=== PATIENT | female | born 1995 | race Caucasian/White ===

== ENCOUNTER 2017-01-26 18:13 | Inpatient (IN) | payer BC, OTHER ==
[~2017-01-26] VITALS: Ht 160 cm; Wt 87.9 kg
[~2017-01-26 18:13] MED LIST: ACET160S3 PO; ACET50TA PO; IBUP-1114 PO; PRENTAB40 PO; STUACAP PO; TUMS500C PO
[2017-01-26 19:23] LABS: MEAN CORPUSCULAR HEMOGLOBIN 27.8 pg (27.0-33.0); MEAN CORPUSCULAR HGB CONC 33.8 g/dl (32.0-36.5); MEAN CORPUSCULAR VOLUME 82.1 fl (80.0-96.0); RED CELL DISTRIBUTION WIDTH 13.9 % (11.5-14.5)
[2017-01-26 19:27] LABS: CONTROL LINE HCG INT CTR LINE PRESENT
[2017-01-26 19:41] LABS: ALBUMIN 4.3 GM/DL (3.2-5.2); ALBUMIN/GLOBULIN RATIO 1.23 (1.00-1.93); ALKALINE PHOSPHATASE 77 U/L (45-117); ALT/SGPT 30 U/L (12-78); ANION GAP 6 MEQ/L (8-16); AST/SGOT 17 U/L (15-37); BILIRUBIN,DIRECT < 0.1 MG/DL (0.0-0.2); BILIRUBIN,TOTAL 0.4 MG/DL (0.2-1.0); BLOOD UREA NITROGEN 9 MG/DL (7-18); CALCIUM LEVEL 9.5 MG/DL (8.5-10.1); CARBON DIOXIDE LEVEL 29 MEQ/L (21-32); CHLORIDE LEVEL 104 MEQ/L (98-107); CREATININE FOR GFR 0.63 MG/DL (0.55-1.02); GLOMERULAR FILTRATION RATE > 60.0 (>60); GLUCOSE, FASTING 94 MG/DL (70-105); POTASSIUM SERUM 4.4 MEQ/L (3.5-5.1); SODIUM LEVEL 139 MEQ/L (136-145); TOTAL PROTEIN 7.8 GM/DL (6.4-8.2)
[2017-01-26] MEDS ORDERED: VITACHTA PO (20:58)
[2017-01-26 20:59] LABS: METHADONE URINE NEGATIVE (NEGATIVE)
[2017-01-27 00:47] VITALS: BP 142/80
[2017-01-27] MEDS ORDERED: MOM 30ML SUSPENSION UDC PO PRN (02:15)
[2017-01-27] MEDS ORDERED: MAALOX 30 ML SUSP *UDC PO PRN (02:15)
[2017-01-27] MEDS: MULTIVITAMINS/MINERALS THERAP 1 TAB PO SCH (09:15)
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
[2017-01-27] MEDS: FLUoxetine 20 MG CAP PO SCH (09:58)
--- NOTE | 2017-01-27 11:09 | HPEPDOC ---
Medical History and Physical Date of Admission Jan 26, 2017 at 21:43 History and Physical PCP: None ATTENDING: Dr. Trung Douglas HPI: 21 yo M admitted to [facility] for unspecified depressive disorder, being medically examined today. No acute medical complaints today. Denies any fevers, chills, weakness, fatigue, [place], CP, SOB, cough, palpitations, abdominal pain, N/V /D or changes in bowel or bladder habits. PMHx: Depression History of SI PSHX: Appendectomy 2000 History of umbilical hernia repair 2016 History of femur fracture SOCHX: Resides in: [facility] Marital Status: Kids: 1-year-old daughter Employment: Unemployed Tobacco use: Denies ETOH: 6 per week Illicit Drugs: Denies IV Drug Use: Denies Tattoos done unprofessionally: Denies FAMHX: Mother: Alive, well Father: Alive, hypertension, diabetes Siblings: One brother Alive, well Children: Alive, well Unexpected deaths due to medical reasons: None. ROS: As noted in HPI, otherwise 11pt ROS of systems reviewed and remarkable only for LMP 12/14/16. PE: GEN: 21yoF, appears stated age. Well-nourished, well developed. No acute distress. Alert and oriented x 3. Pleasant, interactive. HEENT: Normocephalic, atraumatic. Pupils are equal, round, and reactive to light. Extraocular movements are intact. No nystagmus appreciated. Sclera are nonicteric. Conjunctiva without injection. Nose midline. Nasal turbinates without bogginess. EACs both patent BL. TMs both visualized and arce with good cone of light, no bulging or erythema. No facial asymmetry. Moist mucous membranes. Dentition fair. Pharynx pink and moist, no cobblestoning. Neck supple , trachea midline. No lymphadenopathy or thyromegaly appreciated. CHEST: Regular rate and rhythm, +S1, +S2 LUNGS: Clear to auscultation bilaterally. No wheezes, rales, or rhonchi. Breathing appears symmetric and easy. Patient is speaking in full sentences. No accessory muscle use. ABD: Round, soft, non-tender, non-distended. +Bowel sounds throughout. No rebound or guarding. No costovertebral angle tenderness. EXT: Pulses 2+ bilaterally dorsalis pedis and radial. No lower extremity edema appreciated. SKIN: Avinger, dry, warm. Capillary refill <2sec. No rashes. NEURO: Alert and oriented x 3. Cranial nerves III-XII are intact. No focal deficits appreciated. EKG: Pending. A&P: 21 yo M admitted to [facility] for unspecified depressive disorder 1. Psych. Plan per Psychiatry. Obtain baseline EKG to assure the safety of psychiatric medications as they can prolong the QT interval. 2. Follow up with PCP on discharge. 3. Ruth PEREZ present throughout examination Vital Signs Vital Signs Label Value Date Time Patient Temperature 98.8 degrees F 01/27/1746 Temperature Source Skin 01/27/1746 Pulse 94 01/27/1746 Respiratory Rate 20 bpm 01/27/1746 Blood Pressure Assessment 142/80 (100) 01/27/1746 Bedside Pulse Oximetry 98 % 01/27/17 0010 Item Value Date Time Oxygen Delivery Method Room Air 01/27/1746 Laboratory Data Labs 24H Laboratory Tests 2 01/26/17 18:54: Acetaminophen Level < 2.0L, Aspartate Amino Transf (AST/SGOT) 17, Alanine Aminotransferase (ALT/SGPT) 30, Alkaline Phosphatase 77, Total Bilirubin 0.4, Direct Bilirubin < 0.1, Albumin 4.3, Albumin/Globulin Ratio 1.23, Anion Gap 6L, Calcium Level 9.5, Ethyl Alcohol Level 0.004, Glomerular Filtration Rate > 60.0 , Human Chorionic Gonadotropin, Qual NEGATIVE, Salicylates Level 2.5L, Thyroid Stimulating Hormone (TSH) 1.990, Total Protein 7.8 01/26/17 18:55: Urine Amphetamines Screen NEGATIVE, Urine Benzodiazepines Screen NEGATIVE, Urine Opiates Screen NEGATIVE, Urine Barbiturates Screen NEGATIVE, Urine Cannabinoids Screen NEGATIVE, Urine Cocaine Metabolite Screen NEGATIVE, Urine Methadone Screen NEGATIVE, Urine Phencyclidine Screen NEGATIVE CBC/BMP Laboratory Tests 01/26/17 18:54 Red Blood Count 5.01, Mean Corpuscular Volume 82.1, Mean Corpuscular Hemoglobin 27.8, Mean Corpuscular Hemoglobin Concent 33.8, Red Cell Distribution Width 13.9 Home Medications Scheduled Multivitamins Chewable *[facility] STOCKED* (Animal Shapes with C & FA *[facility] STOCKED*) 1 Tab Chew 2 TAB PO DAILY Allergies Coded Allergies: No Known Allergies (Unverified , 02/14/16) Shanique Billy Jan 27, 2017 11:09
[2017-01-27 12:00] VITALS: BP 134/79
[2017-01-27 18:00] VITALS: BP 135/73
[2017-01-27 22:17] VITALS: BP 128/70
[2017-01-27] MEDS: traZODone 50 MG TAB PO PRN (22:17)
--- NOTE | 2017-01-27 22:26 | ECGEPIP ---
Stationary ECG Study [facility] Test Date: 2017-01-27 Pat Name: PILAR CRUZ Department: Room: [place] [address] Gender: F Host And Hostess: MANASA : 1995 Requested By: Shanique Billy Order Number: [id number] Reading MD: Bernard Cueva Measurements Intervals [place] Rate: 83 P: 55 UT: 132 QRS: 52 QRSD: 84 T: 46 QT: 343 QTc: 405 Interpretive Statements Normal sinus rhythm Nonspecific ST-T wave abnormalities Comparison tracing not on file Electronically Signed On 01-27-2017 22:25:32 EDT by Bernard Cueva
[2017-01-28 06:00] VITALS: BP 113/73
[2017-01-28] MEDS: FLUoxetine 20 MG CAP PO SCH (08:24)
[2017-01-28] MEDS: MULTIVITAMINS/MINERALS THERAP 1 TAB PO SCH (08:24)
[2017-01-28] MEDS: ACETAMINOPHEN TAB 650MG DOSE (2X325MG) PO PRN (16:22)
--- NOTE | 2017-01-28 17:54 | IPN ---
DATE: 01/28/2017 TREATMENT: This is a 21-year-old woman in day # two of inpatient hospitalization. She presented with suicidal ideation, reportedly due to her serving her with divorce papers. The patient is diagnosed with major depressive disorder and is currently being prescribed fluoxetine 20 mg orally daily. She reports that she has had marital problems with her for about a year. Her is an active-duty soldier at [employer]. Upon his returning recently from a deployment in [place], in August 2016, the conflicts intensified, resulting in his serving her with divorce papers. Of note, however, her has visited since her current admission, which leads to questioning the nature currently of the relationship. She reports that she still experiences depressive symptoms, frustration, and a strong feeling of betrayal. No reported medication side effects. OBSERVATION: She presents as well groomed and appropriately dressed in [facility]. Her speech is of normal volume, rate and rhythm. Thought process is coherent and goal directed. No evidence of delusions or hallucinations. Her mood is depressed. She denies active thoughts, plan or intent of suicide or homicide. ASSESSMENT: The patient is tolerating medication; however, she remains symptomatic and requires further inpatient stabilization. PLAN: The current treatment will be continued with ongoing reviews and supportive therapy. Further medication adjustment may be required. SMILEY
[2017-01-28 18:00] VITALS: BP 127/70
[2017-01-28 20:00] VITALS: BP 126/74
[2017-01-28 21:29] VITALS: BP 133/74
[2017-01-28] MEDS: traZODone 50 MG TAB PO PRN (22:16)
[2017-01-29 06:38] VITALS: BP 118/66
[2017-01-29] MEDS: MULTIVITAMINS/MINERALS THERAP 1 TAB PO SCH (08:13)
[2017-01-29] MEDS: FLUoxetine 20 MG CAP PO SCH (08:13)
[2017-01-29 18:00] VITALS: BP 133/68
--- NOTE | 2017-01-29 20:53 | IPN ---
DATE: 01/29/2017 TREATMENT: This is day number three of inpatient hospitalization for this 21-year-old woman admitted due to suicidal ideation. She currently is on fluoxetine 20 mg orally daily and is also provided with therapeutic programming, including group and activities. She reports being compliant with her treatments and no side effects noted. She says today that, "I feel better, I am doing better." When asked about her mood; however, she says, "I feel neutral." Subsequently, she clarifies that she feels a little depressed; however, she states that she no longer is having thoughts of suicide. Her visited the previous day and both, she says, had a cordial discussion. OBSERVATION: She presents as appropriately dressed and groomed. No thought disorder evident. Her mood has shown some improvement, although slightly depressed. No psychotic features are evident. She continues to deny active thoughts, plan or intent of suicide or homicide. ASSESSMENT: She continues to adjust relatively well to current setting, showing some improvement, although not optimal; however, she does not appear to be a danger to self or others at this time. Further inpatient hospitalization is required for stabilization. PLAN: She will be continued on Prozac 20 mg with ongoing supportive therapy. MTDD
[2017-01-29] MEDS: traZODone 50 MG TAB PO PRN (22:34)
[2017-01-30 06:50] VITALS: BP 124/60
[2017-01-30] MEDS: FLUoxetine 20 MG CAP PO SCH (08:28)
[2017-01-30] MEDS: MULTIVITAMINS/MINERALS THERAP 1 TAB PO SCH (08:28)
--- NOTE | 2017-01-30 13:03 | IPN ---
DATE: 01/30/2017 Mitch Geiger was seen throughout the weekend by Dr. Cardenas. She states to me that she was doing well but her came throughout the weekend and was "great" until last night. He stated that he could not be with her. The patient had brought the subject up. This made her again depressed and suicidal in thought. She states that he brought puzzles and throughout the puzzles he had written love notes. He said that he loved her and kissed her. However, he then stated that he plans for the patient to move to [place] and then he would admit himself to the mental health unit. She states that he is "holding it together for our daughter." She states that he wants "marriage things without being ." We discussed his mixed messages and that the patient needs to look that her moods and suicidal ideation are depending on his changing mind. It should be noted that the patient has had a history of past overdoses in 2013 and 2014 that went untreated. I have presented raised her Prozac to 30 mg. DIAGNOSES: 1. Major depressive illness. 2. Marital stressors. MENTAL STATUS EXAMINATION: Speech is normal rate and rhythm. No disturbances of thought process. No loose associations. No abnormal psychotic thoughts. Judgment poor. Insight poor. Orientation in three spheres is present. No difficulties in recent and remote memory. Attention and concentration are normal. No disturbances of language. She has a full fund of knowledge. Her mood is low. Her affect is flat.
[2017-01-30 18:00] VITALS: BP 138/75
[2017-01-30] MEDS: traZODone 50 MG TAB PO PRN (22:23)
[2017-01-31 06:09] VITALS: BP 138/69
[2017-01-31] MEDS: FLUoxetine 10 MG CAP PO SCH (08:24)
[2017-01-31] MEDS: MULTIVITAMINS/MINERALS THERAP 1 TAB PO SCH (08:24)
--- NOTE | 2017-01-31 14:40 | IPN ---
DATE: 01/31/2017 I discussed her past overdoses with her. She states, "I hated my unit and they were awful to me." She states, "I felt alone and nobody was there to help me." She took Percocet and Ambien for those overdoses. She states, "I rolled the dice." Her third overdose was 1-1/2 months ago. She states that this last one was due to home stress. She states that she has been in the same fight with her for at least 6 months or more. She states that they talk of divorce. This also occurred on Monday when her mood slipped again. She states him serving her papers was more terrible and caused this admission. She states, "I realize it is me and I have never had any help with it. We discussed if she moved to [place] what would occur and she stated, "that her parents were also very intrusive in her life." MENTAL STATUS EXAMINATION: Speech is normal rate and articulation. No disturbance of thought process. No loose associations. No abnormal or psychotic thoughts. Judgment and insight poor. Orientation in three spheres present. Recent and remote memory intact. Attention and concentration intact. No disturbances of language. Full fund of knowledge. Mood is low and affect is flat. IMPRESSION: 1. Major depressive illness. 2. Marital stress. The patient will continue on fluoxetine, which I have increased to 30 mg and outpatient planning in a safe environment that will not initiate a repeat suicide attempt, as will be discussed in treatment planning.
[2017-01-31 18:00] VITALS: BP 129/65
[2017-01-31] MEDS: traZODone 50 MG TAB PO PRN (22:38)
[2017-02-01 06:12] VITALS: BP 135/69
[2017-02-01] MEDS: MULTIVITAMINS/MINERALS THERAP 1 TAB PO SCH (08:02)
[2017-02-01] MEDS: FLUoxetine 10 MG CAP PO SCH (08:03)
--- NOTE | 2017-02-01 13:47 | IPN ---
DATE: 02/01/2017 I met with Mitch Geiger and staff today. She states her had issues of deployment and he became suicidal. She reported it and he has held that against her. She probably states that she will go back to her apartment. [facility] has a long waiting list to see a physician. She described to us how last night he was mad at her for sitting with other people in the lounge and has in the past been angry at her for having a male doctor. She states, "I have to change". She states it is possible he could go to [place], but it is not definite. Besides from treating her depression medically, the main issue is for her to return to a safe environment as she does not seem to have the strength when he argues with her to avoid self harm. Present medications include fluoxetine which has been raised to 30 mg in the morning, trazodone for sleep 100 mg as needed. Her CBC is within normal range. No disturbances of chemistry in her general serum chemistries. Toxicology screen is negative. MENTAL STATUS: Her speech is within normal range and normal rhythm. No disturbances of thought process. No loose associations. Abnormal psychotic thoughts are not present. Judgment and insight continue fair. Orientation in three spheres is present. Recent and remote memory are intact. No disturbances of attention or concentration. No disturbances of language. Full fund of knowledge. Mood is fair. Affect is still flat. Care was coordinated with treatment team and discharge planning. The patient has a high probability still of recurrence if patient is to be discharged.
[2017-02-01 18:08] VITALS: BP 120/60
[2017-02-01] MEDS: traZODone 50 MG TAB PO PRN (23:02)
[2017-02-02 06:26] VITALS: BP 116/61
[2017-02-02] MEDS: MULTIVITAMINS/MINERALS THERAP 1 TAB PO SCH (08:18)
[2017-02-02] MEDS: FLUoxetine 10 MG CAP PO SCH (08:18)
--- NOTE | 2017-02-02 12:02 | IPN ---
DATE: 02/02/2017 I met with Mitch Geiger today. Staff informed me she had "thrown her off the unit last night." Patient stated that her visited and he was angry about her sitting in the lounge with men. He told her she had enough friends here and he did not need to visit. Her father is coming up from [place] and will visit with her baby this weekend. He will stay in her apartment. The patient's can be put in barracks but it is unclear of the dynamic to me how that occurs. Patient is planning when she is discharged to go home. She states the mood is improving and she sees a significant difference that she is laughing more and has a better mindset. She was found later in her bedroom laying in bed expressing sadness. MENTAL STATUS: Speech is normal. No thought disorders. No loose associations. No psychotic thoughts. Judgment and insight improving. Fully oriented. Recent and remote memory intact. No difficulties of attention or concentration. No abnormalities of language. Full fund of knowledge. Mood is improving fair and affect is brighter. Seen later in day looking very sad. IMPRESSION: Major depression. Marital stress. MTDD
[2017-02-02 18:00] VITALS: BP 121/60
[2017-02-02] MEDS: traZODone 50 MG TAB PO PRN (23:03)
[2017-02-03 06:20] VITALS: BP 149/65
[2017-02-03] MEDS: MULTIVITAMINS/MINERALS THERAP 1 TAB PO SCH (08:55)
[2017-02-03] MEDS: FLUoxetine 10 MG CAP PO SCH (08:55)
--- NOTE | 2017-02-03 15:20 | IPN ---
DATE: 02/03/2017 I met with Mitch Geiger today and the team met with Mitch Geiger. I have increased her fluoxetine to 40 mg. MOST RECENT DEVELOPMENTS: Patient's parents are coming from [place] tomorrow. She now states they will be staying with her when she requests her sent to [facility]. She states she will not move to [place] because her will not be able to see their child and that he is a good father, although they have marital difficulties. She has no longer-term plan than that. She states her mood is improving with fluoxetine and she feels she is brighter and "more herself" with more confidence. Long-term planning seems to be an issue and I will want to continue determining a discharge plan that will hopefully prevent another suicide attempt due to conflicts with her . MENTAL STATUS EXAMINATION: Speech is normal. No disturbance of thought process. No loose associations. No abnormal or psychotic thoughts. Judgment and insight are good. Orientation is full in three spheres. Recent and remote memory intact. Attention and concentration are full. No disturbances of language. Full fund of knowledge. Mood is better. Affect is brighter.
[2017-02-03 18:00] VITALS: BP 130/68
[2017-02-03] MEDS: traZODone 50 MG TAB PO PRN (22:41)
[2017-02-04 07:02] VITALS: BP 127/69
[2017-02-04] MEDS: FLUoxetine 20 MG CAP PO SCH (08:04)
[2017-02-04] MEDS: MULTIVITAMINS/MINERALS THERAP 1 TAB PO SCH (08:04)
[2017-02-04 18:00] VITALS: BP 122/60
[2017-02-04] MEDS: ACETAMINOPHEN TAB 650MG DOSE (2X325MG) PO PRN (21:30)
[2017-02-04] MEDS: traZODone 50 MG TAB PO PRN (23:43)
[2017-02-05 06:30] VITALS: BP 128/72
[2017-02-05] MEDS: FLUoxetine 20 MG CAP PO SCH (08:59)
[2017-02-05] MEDS: MULTIVITAMINS/MINERALS THERAP 1 TAB PO SCH (08:59)
[2017-02-05 18:00] VITALS: BP 120/61
[2017-02-05] MEDS: ACETAMINOPHEN TAB 650MG DOSE (2X325MG) PO PRN (21:22)
[2017-02-05] MEDS: traZODone 50 MG TAB PO PRN (22:45)
[2017-02-06 06:39] VITALS: BP 132/62
[2017-02-06] MEDS: MULTIVITAMINS/MINERALS THERAP 1 TAB PO SCH (07:52)
[2017-02-06] MEDS: FLUoxetine 20 MG CAP PO SCH (07:53)
[2017-02-06] MEDS ORDERED: FLUO20CA9 PO (08:29)
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
== END 2017-02-06 13:45 | disposition home or self-care (01) | DRG 754 ==
LOC: M ED 19:31 → M ED INP 21:43 → M PSY 01-27 00:45
PROVIDERS: ADMIT Psychiatry & Neurology Psychiatry; ATTEND Psychiatry & Neurology Child & Adolescent Psychiatry
DX: F32.9 Major depressive disorder, single episode, unspecified (principal); Z63.0 Problems in relationship with spouse or partner; Z91.5 Personal history of self-harm

== ENCOUNTER 2017-05-12 17:19 | Inpatient (IN) | payer BC, OTHER ==
[~2017-05-12] VITALS: Ht 160 cm; Wt 85.4 kg
[~2017-05-12 17:19] MED LIST changes: +FLUO20CA19 PO; +VITACHTA PO
[2017-05-12 18:11] LABS: MEAN CORPUSCULAR HEMOGLOBIN 29.1 pg (27.0-33.0); MEAN CORPUSCULAR HGB CONC 34.2 g/dl (32.0-36.5); MEAN CORPUSCULAR VOLUME 85.1 fl (80.0-96.0); RED CELL DISTRIBUTION WIDTH 13.7 % (11.5-14.5); WHITE BLOOD COUNT 7.9 K/mm3 (4.0-10.0)
[2017-05-12 18:21] LABS: CONTROL LINE HCG INT CTR LINE PRESENT
[2017-05-12 18:36] LABS: METHADONE URINE NEGATIVE (NEGATIVE)
[2017-05-12 18:46] LABS: ALBUMIN 4.1 GM/DL (3.2-5.2); ALBUMIN/GLOBULIN RATIO 1.21 (1.00-1.93); ALKALINE PHOSPHATASE 69 U/L (45-117); ALT/SGPT 25 U/L (12-78); ANION GAP 8 MEQ/L (8-16); AST/SGOT 15 U/L (15-37); BILIRUBIN,DIRECT < 0.1 MG/DL (0.0-0.2); BILIRUBIN,TOTAL 0.2 MG/DL (0.2-1.0); BLOOD UREA NITROGEN 7 MG/DL (7-18); CALCIUM LEVEL 9.5 MG/DL (8.5-10.1); CARBON DIOXIDE LEVEL 24 MEQ/L (21-32); CHLORIDE LEVEL 106 MEQ/L (98-107); CREATININE FOR GFR 0.66 MG/DL (0.55-1.02); GLOMERULAR FILTRATION RATE > 60.0 (>60); GLUCOSE, FASTING 92 MG/DL (70-105); POTASSIUM SERUM 4.4 MEQ/L (3.5-5.1); SODIUM LEVEL 138 MEQ/L (136-145); TOTAL PROTEIN 7.5 GM/DL (6.4-8.2)
[2017-05-12] MEDS ORDERED: FLUO40CA PO (20:11)
[2017-05-12] MEDS ORDERED: LOW-TAB2 PO (20:11)
[2017-05-12] MEDS ORDERED: HALOPERIDOL 5 MG TAB PO PRN (21:00)
[2017-05-12] MEDS ORDERED: MAALOX 30 ML SUSP *UDC PO PRN (21:00)
[2017-05-12] MEDS ORDERED: MOM 30ML SUSPENSION UDC PO PRN (21:00)
[2017-05-12] MEDS ORDERED: LORazepam 1 MG TAB PO PRN (21:00)
[2017-05-12] MEDS ORDERED: ACETAMINOPHEN TAB 650MG DOSE (2X325MG) PO PRN (21:00)
[2017-05-12 23:28] VITALS: BP 138/88
[2017-05-13] MEDS: traZODone 50 MG TAB PO PRN (00:36)
[2017-05-13 06:51] VITALS: BP 124/67
[2017-05-13] MEDS: FLUoxetine 20 MG CAP PO SCH (09:12)
[2017-05-13] MEDS: NICOTINE 21MG/24HR 1 EA TRANSDERMAL TD SCH (11:49)
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
[2017-05-13 18:00] VITALS: BP 131/60
[2017-05-14] MEDS ORDERED: UNRESOLVED PATIENT OWN MED ORDER XX SCH (00:01)
--- NOTE | 2017-05-14 01:25 | HPE ---
DATE OF ADMISSION: 05/12/2017 HISTORY OF PRESENT ILLNESS: Please refer to psychiatric history and evaluation for further details on this admission. This examination and history is intended for medical issues, which may need treatment, followup or consult on this 21-year-old female. ALLERGIES: No known allergies. SOCIAL HISTORY: She is . She has a 1-1/2-year-old daughter. She does not smoke cigarettes. She has cut down her drinking. She states she drinks one or two drinks about every 2 weeks. Recreational drug use none. PAST MEDICAL HISTORY: Depression. PAST SURGICAL HISTORY: 1. Appendectomy 2000. 2. Umbilical hernia repair 2015. 3. History of femur fracture. LABORATORY STUDIES: CBC is normal. CMP was normal. Toxicology screen was negative. HOME MEDICATIONS: - Low-Ogestrel 0.3/30 one by mouth daily - fluoxetine 40 mg by mouth daily FAMILY HISTORY: Noncontributory. REVIEW OF SYSTEMS: 10-system review was done, was unremarkable. She had no complaints. OBJECTIVE: Height 63 inches, weight 82.2 kg, body mass index (BMI) 32.1. Blood pressure 124/67, pulse 80, respirations 18, temperature 98.8. Patient is alert and oriented times three. Pupils equal and react to light. Extraocular muscles intact. Cornea and sclerae clear. Conjunctivae were normal. No facial asymmetry. Pharynx, tongue and gums pink and moist. Tongue is midline. Neck is supple without lymphadenopathy. No thyromegaly, no goiter. Carotids 2+ without bruit. Chest clear to auscultation without wheeze or retraction. Heart is regular. Abdomen is benign. Bowel sounds positive. Genitourinary/rectal: Not done. Extremities show equal strength, full range of motion. No cyanosis, clubbing or edema. Peripheral pulses equal and palpable bilaterally. Skin is warm and dry. IMPRESSION/PLAN: Psychiatric plan per psychiatry. Low-Ogestrel 0.3/30 one by mouth daily. Patient will have family bring in and once identified by pharmacy may take her own control pill daily. No other acute medical issues.
[2017-05-14 06:22] VITALS: BP 121/62
[2017-05-14] MEDS: NICOTINE 21MG/24HR 1 EA TRANSDERMAL TD SCH (09:30)
[2017-05-14] MEDS: FLUoxetine 20 MG CAP PO SCH (09:31)
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
[2017-05-14 18:00] VITALS: BP 116/67
[2017-05-14] MEDS: traZODone 50 MG TAB PO PRN (21:38)
[2017-05-14] MEDS: LOW OGESTREL PO SCH (21:38)
[2017-05-15 06:00] VITALS: BP 134/63
[2017-05-15] MEDS: NICOTINE 21MG/24HR 1 EA TRANSDERMAL TD SCH (09:14)
[2017-05-15] MEDS: LOW OGESTREL PO SCH (09:14)
[2017-05-15] MEDS: FLUoxetine 20 MG CAP PO SCH (09:15)
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
[2017-05-15 18:00] VITALS: BP 127/70
[2017-05-15] MEDS: traZODone 50 MG TAB PO PRN (21:01)
[2017-05-16 06:39] VITALS: BP 132/69
[2017-05-16] MEDS: NICOTINE 21MG/24HR 1 EA TRANSDERMAL TD SCH (08:59)
[2017-05-16] MEDS: FLUoxetine 20 MG CAP PO SCH (08:59)
[2017-05-16] MEDS: LOW OGESTREL PO SCH (08:59)
--- NOTE | 2017-05-16 17:11 | MHIPNPDOC ---
[facility] Progress Note Progress Note DATE OF SERVICE: 05/16/17 History: Patient is 21-year-old female who was admitted to [facility] inpatient psychiatric unit after reporting experiencing suicidal ideation with plan to "crash my car into something." Patient apparently informed outpatient provider who Center for psychiatric evaluation. Patient has lengthy mental health history which dates back to age 13, has had prior psychiatric hospitalizations, last occurring in November, for depression with suicidal ideation, notes she attempted to overdose on Percocet in November 2016. Patient states she has been taking Prozac and smarter 2016, indicates medication works well. Patient states her symptoms of depression were recently exacerbated by multiple social stressors involving argument with boyfriend and being asked to leave the residence she shares with him, job-related stress, financial strain, and belief that she may be . Patient indicates she is active with an outpatient psychotherapist with whom she meets one time per week. It Lead met with patient today to assess treatment progress on inpatient unit. Patient denies symptoms of anxiety and depression, indicates she and boyfriend have now "completely resolved," their differences, boyfriend wants patient to return to apartment, patient reports reduced stress after quitting her job, indicates all bills will be paid this Monday when she receives [employer], and she reiterates relief after finding out that she is not . Patient denies having safety concerns at home, indicates relationship with boyfriend is positive and supportive, states her housing situation is stable. Patient denies suicidal and homicidal ideation, denies auditory and visual hallucinations, denies urge to engage in self-injurious behavior. Patient indicates appetite and energy level remains stable and she denies challenges with concentration and focus, adds she is sleeping well and denies nightmares symptoms. Patient has been tending to her ADLs. Patient states the Prozac remains effective, she declines dosing adjustment, and denies medication side effects. Patient has also been utilizing trazodone for sleep with good effect reported. Patient denies medication side effects. Patient presents with no signs of acute distress at time of interaction. VITALS: See below NEW TEST RESULTS: No new results MEDICAL HISTORY: Patient denies acute medical issues, denies history of seizure and head injury. Appendectomy 2000, umbilical hernia repair 2015, history of fractured femur, tonic pain to right knee Labs on admission within normal limits HCG negative. Patient utilizes routine control, has been educated on the potential risks of psychotropic medications to unborn child should she become while taking psychotropic medications. UDS negative 01/27/17 EKG normal sinus rhythm nonspecific ST-T wave abnormality. Clinical consultation sought with outpatient follow-up recommended. Patient is asymptomatic and EKG results have been reviewed and patient has been instructed to follow-up with outpatient provider. Comparison tracing not on file CURRENT MEDICATIONS: See below MENTAL STATUS EXAMINATION: General appearance: Patient is a 21-year old female, who is pleasant and cooperative, makes good eye contact, and exhibits adequate personal hygiene, dressed in own clothing, ambulates with steady gait, appears stated age Speech: Of normal rate, rhythm, volume, spontaneous, coherent Thought processes: Linear, logical, rational Thought content: Rational, logical, no tangentiality or paranoia noted Abstract reasoning and computation: Appears intact Description of associations: Intact Description of abnormal or psychotic thoughts: Denies suicidal and homicidal ideation, denies auditory or visual hallucinations, does not appear to be responding to internal stimuli, does not endorse bizarre or paranoid ideations, and denies preoccupation with violence or obsessions Judgment: Fair, has improved during treatment Insight: Fair, has improved during treatment Orientation: A and O 3 Recent and remote memory: Appears intact Attention span and concentration: Appears within normal limits Fund of knowledge: Appears adequate Mood: "I'm feeling better and I feel like I'm ready to discharge to home." Patient denies symptoms of anxiety and depression, no mood lability noted Affect: Mild constriction, brightens frequently and appropriately, congruent with mood DIAGNOSES: Major depressive disorder, recurrent, moderate ASSESSMENT: Patient continues to adjust to unit, has been visible, engageable, participating in unit activities, cooperative with staff, and has presented with no behavior management challenges. Patient reiterates today that she feels prepared for discharge now that some of her social stressors have been resolved , notes she and boyfriend have reconciled, she has been able to pay some of her bills, notes she will be able to return to the apartment where she lived had lived with her boyfriend, has quit one of her jobs, and has learned that she is not . Patient today expresses insight with regard to symptoms, behavior, and events which occurred prior to hospitalization, is no longer rationalizing her expression of suicidal ideation, appears more genuinely motivated for recovery, and is able to verbalize concrete strategies for mitigating symptoms of anxiety, depression, and suicidal ideation should they reemerge. Patient denies current suicidal and homicidal ideation and verbalizes awareness of how to access supportive services on the unit if needed. Patient is currently taking Prozac, is declining dosing adjustment and denies need for medication change, indicates medication is effective. Patient is also been utilizing trazodone for sleep with good effect reported and utilized Ativan 1 during stay to address symptoms of anxiety. Patient denies medication side effects and indicates regimen is effective. Will continue to monitor patient's response to medications and medication side effects, will evaluate patient safety, resolution of suicidal ideation, and discharge readiness. Patient is aware that she is being evaluated for possible discharge tomorrow, campus coordinator is attempting to communicate with patient's support system and to make arrangements for outpatient follow-up to ensure continuity of care. Patient reiterates today at a time of discharge she would like to return home with boyfriend and participate in outpatient psychotherapy and medication management through [facility]. MANAGEMENT PLAN: Continue Prozac 40 mg po q am and Trazodone 50 mg po hs PRN insomnia Maintain safety precautions Patient to attend groups and participate in unit programming to develop coping strategies Engage patient in discharge planning process and arrange meeting with support system to ensure safe discharge planning when appropriate Patient to follow up with PCM upon discharge TIME SPENT: 35 minutes Vital Signs Vital Signs Date Time Temp Pulse Resp B/P (MAP) Pulse Ox O2 Delivery O2 Flow Rate FiO2 05/16/17 06:39 98.8 80 18 132/69 (90) 05/12/17 23:28 Room Air 05/12/17 23:12 100 Current Medications Current Medications Acetaminophen (Tylenol Tab) 650 mg Q6HP PRN PO HEADACHE or DISCOMFORT; Start at 21:00; Stop 06/11/17 at 20:59 Al Hydrox/Mg Hydrox/Simethicone (Mylanta) 30 ml Q4HP PRN PO HEARTBURN/ INDIGESTION; Start 05/12/17 at 21:00; Stop 06/11/17 at 20:59 Fluoxetine HCl (PROzac) 40 mg QAM PO Last administered on 05/16/17t 08:59; Start 05/13/17 at 09:00; Stop 06/12/17 at 08:59 Haloperidol (Haldol) 5 mg Q4HP PRN PO ANXIETY/AGITATION; Start 05/12/17 at 21: 00; Stop 06/11/17 at 20:59 Home Med (Med Rec Complete!) ASDIRECTED XX ; Start 05/12/17 at 20:15; Stop at 20:15; Status DC Lorazepam (Ativan) 1 mg Q4HP PRN PO ANXIETY/AGITATION Last administered on 05/14 11:59; Start 05/12/17 at 21:00; Stop 05/19/17 at 20:59 Magnesium Hydroxide (Milk Of Magnesia) 30 ml DAILYPRN PRN PO CONSTIPATION; Start 05/12/17 at 21:00; Stop 06/11/17 at 20:59 Miscellaneous (Unresolved Patient Own Med Order) SEE LABEL COMMENTS UNRESOLVED XX ; Start 05/14/17 at 00:01; Stop 05/15/17 at 00:44; Status DC Nicotine (Nicoderm Cq 21mg) 1 patch DAILY TD Last administered on 05/16/17 08: 59; Start 05/13/17 at 09:00; Stop 06/12/17 at 08:59 Patient Own Medication (Patient'S Own Med) 1 ea DAILY PO Last administered on 08:59; Start 05/14/17 at 09:00; Stop 06/13/17 at 08:59; Status Future hold Trazodone HCl (Desyrel) 50 mg QHSP PRN PO INSOMNIA Last administered on 21:01; Start 05/12/17 at 21:00; Stop 06/11/17 at 20:59 Allergies Coded Allergies: No Known Allergies (Unverified , 02/14/16) Shahla Moya May 16, 2017 17:11
[2017-05-16 18:00] VITALS: BP 124/66
[2017-05-16] MEDS: traZODone 50 MG TAB PO PRN (20:47)
[2017-05-17 06:44] VITALS: BP 125/60
[2017-05-17] MEDS: NICOTINE 21MG/24HR 1 EA TRANSDERMAL TD SCH (09:00)
[2017-05-17] MEDS: LOW OGESTREL PO SCH (09:29)
[2017-05-17] MEDS: FLUoxetine 20 MG CAP PO SCH (09:30)
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
[2017-05-17] MEDS ORDERED: NICO21PAT TD (10:05)
== END 2017-05-17 13:10 | disposition home or self-care (01) | DRG 751 ==
LOC: M ED 17:19 → M ED INP 20:46 → M PSY 23:21
PROVIDERS: ADMIT Psychiatry & Neurology Psychiatry; ATTEND Psychiatry & Neurology Psychiatry
DX: F33.1 Major depressive disorder, recurrent, moderate (principal)

== ENCOUNTER → 2018-04-13 | Outpatient (CLI) | payer BC ==
[2018-04-16 10:01] LABS: LUTEINIZING HORMONE 7.5 mIU/mL; PROLACTIN 6.3 NG/ML
[2018-04-16 10:04] LABS: FOLLICLE STIMULATING HORMONE 6.6 mIU/mL
[2018-04-16 10:04] LABS: ESTRADIOL 66.6 PG/ML
[2018-04-18 00:06] LABS: 17 HYDROXY PROGESTERONE 152 ng/dL (.); DEHYDROEPIANDROSTERONE SULFATE 362.5 ug/dL (110.0-431.7); TESTOSTERONE FREE (DIRECT) 8.2 pg/mL (0.0-4.2)
== END ==
LOC: M SMT 15:41
DX: N91.2 Amenorrhea, unspecified (principal)
CPT/HCPCS: 83001